=== PATIENT | female | born 1975 | race African-American/Black ===

== ENCOUNTER 2021-03-31 10:35 | Emergency (ER) | payer OTHER ==
[~2021-03-31] VITALS: Ht 170.2 cm; Wt 58.3 kg
[2021-03-31] MEDS ORDERED: ONDANSETRON PF 4 MG/2 ML VIAL. IVP ONE (11:00)
[2021-03-31] MEDS ORDERED: IV NORMAL SALINE 1,000ML 1,000 ML IV ONE (11:00)
--- NOTE | 2021-03-31 11:18 | PHYS DOC ---
Past History Past Surgical History: Hysterectomy, Other Additional Past Surgical Histo: Cyst left shoulder (HARRIET RUBALCAVA APRN) Alcohol Use: Rarely (HARRIET RUBALCAVA APRN) General Adult EDM: Chief Complaint: DIZZY/LIGHT HEADED HPI: HPI: Patient is a 46-year-old female presents with nausea/vomiting/diarrhea since yesterday. Patient states that she was seen by her PCP this morning due to recent illness. "When I got there she said my blood pressure was really high". "Then I started feeling kind of dizzy and had a headache". "I do not know if I started feeling like that because of my anxiety but the doctor really scared me". Patient reports blood pressure at PCP was 181/93. Denies taking anything prior to arrival. Denies chest pain, shortness of breath. No fever. Patient has history of hypertension, asthma, anxiety/depression, bipolar disorder. (HARRIET RUBALCAVA APRN) Review of Systems: Review of Systems: Constitutional: Denies fever or chills Eyes: Denies change in visual acuity HENT: Denies nasal congestion or sore throat Respiratory: Denies cough or shortness of breath Cardiovascular: Denies chest pain or edema GI: Denies abdominal pain. Reports nausea, vomiting, diarrhea : Denies dysuria Musculoskeletal: Denies back pain or joint pain Integument: Denies rash Neurologic: Reports headache. Denies focal weakness or sensory changes Endocrine: Denies polyuria or polydipsia Lymphatic: Denies swollen glands Psychiatric: Reports depression or anxiety (HARRIET RUBALCAVA APRN) Allergies: Allergies: Allergies Coded Allergies Type Severity Reaction Last Updated Verified No Known Drug Allergies 03/31/21 No (HARRIET RUBALCAVA APRN) Physical Exam: PE: Constitutional: Well developed, well nourished, no acute distress, non-toxic appearance. [] HENT: Normocephalic, atraumatic, bilateral external ears normal, oropharynx moist, no oral exudates, nose normal. [] Eyes: PERRLA, EOMI, conjunctiva normal, no discharge. [] Neck: Normal range of motion, no tenderness, supple, no stridor. [] Cardiovascular:Heart rate regular rhythm, no murmur [] Lungs & Thorax: Bilateral breath sounds clear to auscultation [] Abdomen: Bowel sounds normal, soft, no tenderness, no masses, no pulsatile masses. [] Skin: Warm, dry, no erythema, no rash. [] Back: No tenderness, no CVA tenderness. [] Extremities: No tenderness, no cyanosis, no clubbing, ROM intact, no edema. [] Neurologic: Alert and oriented X 3, normal motor function, normal sensory function, no focal deficits noted. [] Psychologic: Affect normal, anxious mood (HARRIET RUBALCAVA APRN) Current Patient Data: Vital Signs: Vital Signs Date Time Temp Pulse Resp B/P (MAP) Pulse Ox O2 Delivery O2 Flow Rate FiO2 03/31/21 10:46 98.5 85 16 176/100 (125) 99 Room Air (HARRIET RUBALCAVA APRN) EKG: EKG: Sinus rhythm. Heart rate 73 bpm. No STEMI. Read by Dr. Su at 1112 [] (HARRIET RUBALCAVA APRN) Radiology/Procedures: Radiology/Procedures: [] CT HEAD WITHOUT CONTRAST 03/31/2021 11:13 AM Indication: Reason: DIZZINESS , HYPERTENSION / Spl. Instructions: / History: Comparison: None Procedure: Multidetector CT imaging of the head was performed without the administration of contrast. Findings: There is no evidence of acute intracranial hemorrhage. There is no evidence of acute territorial infarction. Please note that CT is limited for evaluation of acute ischemia. No mass effect or midline shift is identified . The ventricles and basilar cisterns have an appropriate appearance. No abnormal extra-axial fluid collections are seen. No acute osseous changes are identified. Impression: No evidence of acute intracranial abnormality CT DOSING PQRS STATEMENT: One or more of the following individualized dose reduction techniques were utilized for this examination: 1. Automated exposure control 2. Adjustment of the mA and/or kV according to patient size 3. Use of iterative reconstruction technique Electronically signed by: Lake Prince MD (03/31/2021 11:24 AM) [id number] (HARRIET RUBALCAVA APRN) Heart Score: C/O Chest Pain: No Risk Factors: Risk Factors: DM, Current or recent (<one month) smoker, HTN, HLP, family history of CAD, obesity. Risk Scores: Score 0 - 3: 2.5% MACE over next 6 weeks - Discharge Home Score 4 - 6: 20.3% MACE over next 6 weeks - Admit for Clinical Observation Score 7 - 10: 72.7% MACE over next 6 weeks - Early Invasive Strategies (HARRIET RUBALCAVA APRN) Course & Med Decision Making: Course & Med Decision Making Pertinent Labs and Imaging studies reviewed. (See chart for details) [] Nontoxic appearing, 46-year-old female, was seen by her PCP this morning for nausea/vomiting/diarrhea since yesterday. Patient's been unable to keep down liquids or medication since yesterday. Patient's blood pressure was elevated at PCP at 181/93. Patient states that her PCP sent her to the ER because she was also complaining of a headache and dizziness that started after arriving at PCP. Patient appears very anxious. Patient has a history of anxiety and also hypertension. Patient did attempt to take her blood pressure medicine this morning but states that she vomited soon after. Blood pressure on arrival was 176/100. Patient given Zofran, Ativan, NS bolus to help with symptoms. EKG shows sinus rhythm. No STEMI. CT head is negative for acute abnormality. All labs unremarkable. Patient is most likely dehydrated due to gastroenteritis. Explained to patient that is most likely causing her dizziness along with her headache. Discussed results with patient. Patient states her symptoms have improved. Patient is denying any complaints at this time. Sending patient home with prescription for Zofran. Advised patient she needs to call her PCP to make a follow-up appointment to discuss blood pressure medication adjustments. Blood pressure improved prior to disposition. Patient is hemodynamically stable and able to ambulate on her own. Patient is appreciative and agrees with discharge plan. (HARRIET RUBALCAVA APRN) Course & Med Decision Making I have participated in the care of this patient and I have reviewed and agree with all pertinent clinical information above including history, exam, and recommendations. Zay Su DO (ZAY SU DO) Ton Disclaimer: Ton Disclaimer: This electronic medical record was generated, in whole or in part, using a voice recognition dictation system. (HARRIET RUBALCAVA APRN) Departure Departure: Impression: Primary Impression: Gastroenteritis Additional Impression: Dehydration Disposition: HOME / SELF CARE / HOMELESS Condition: STABLE Referrals: FRANCY GRANT DO (PCP) Patient Instructions: Viral Gastroenteritis, [id number] Additional Instructions: You were seen in the emergency room for elevated blood pressure. You have also been experiencing nausea/vomiting/diarrhea since yesterday. All of your labs were unremarkable. CT of your head was unremarkable. You most likely have some dehydration from gastroenteritis. You were given nausea medication, fluids and anxiety medication. All of your symptoms improved along with your blood pressure. You need to call your PCP back today to make a follow-up appointment so you can discuss making adjustments to your blood pressure medicine. I am sending you home with some nausea medication. Make sure that you are drinking plenty of fluids. Please return to the emergency room if you have chest pain, shortness of breath, uncontrolled vomiting or any worsening concerns. EMERGENCY DEPARTMENT GENERAL DISCHARGE INSTRUCTIONS Thank you for coming to [facility] (ED) today and trusting us with you care. We trust that you had a positivie experience in our Emergency Department. If you wish to speak to the department management, you may call the director at [phone]. YOUR FOLLOW UP INSTRUCTIONS ARE FOLLOWS: 1. Do you have a private Doctor? If you do not have a private doctor, please ask for a resource list of physicians or clinics that may be able to assist you with follow up care. 2. The Emergency Physician has interpreted your x-rays. The X-Ray specialist will also review them. If there is a change in the findings, you will be notified in 48 hours when at all possible. 3. A lab test or culture has been done, your results will be reviewed and you will be notified if you need a change in treatment. ADDITIONAL INSTRUCTIONS AND INFORMATION: 1. Your care today has been supervised by a physician who is specially trained in emergency care. Many problems require more than one evaluation for a complete diagnosis and treatment. We recommend that you schedule your follow up appointment as recommended to ensure complete treatment of you illness or injury. If you are unable to obtain follow up care and continue to have a problem, or if your condition worsens, we recommend that you return to the ED. 2. We are not able to safely determine your condition over the phone nor are we able to give sound medical advice over the phone. For these safety reasons, if you call for medical advice we will ask you to come to the ED for further evaluation. 3. If you have any questions regarding these discharge instructions please call the ED at [phone]. SAFETY INFORMATION: In the interest of safety, wellness, and injury prevention; we encourage you to wear your sealbelt, if you smoke; quite smoking, and we encourage family to use a protective helmet for bicycling and other sporting events that present an increased risk for head injury. IF YOUR SYMPTOMS WORSEN OR NEW SYMPTOMS DEVELOP, OR YOU HAVE CONCERNS ABOUT YOUR CONDITION; OR IF YOUR CONDITION WORSENS WHILE YOU ARE WAITING FOR YOUR FOLLOW UP APPOINTMENT; EITHER CONTACT YOUR PRIMARY CARE DOCTOR, THE PHYSICIAN WHOSE NAME AND NUMBER YOU WERE GIVEN, OR RETURN TO THE ED IMMEDIATELY. Scripts Ondansetron Hcl (ZOFRAN) 4 Mg Tablet 1 TAB PO Q6HRS for nausea for 7 Days, #28 TAB Prov: HARRIET RUBALCAVA APRN 03/31/21 HARRIET RUBALCAVA APRN Mar 31, 2021 11:18 ZAY SU DO Apr 03, 2021 00:27
--- NOTE | 2021-03-31 11:26 | RAD ---
CT HEAD WITHOUT CONTRAST 03/31/2021 11:13 AM Indication: Reason: DIZZINESS , HYPERTENSION / Spl. Instructions: / History: Comparison: None Procedure: Multidetector CT imaging of the head was performed without the administration of contrast. Findings: There is no evidence of acute intracranial hemorrhage. There is no evidence of acute territ orial infarction. Please note that CT is limited for evaluation of acute ischemia. No mass effect or midline shift is identified . The ventricles and basilar cisterns have an appropriate appearance. No abnormal extra-axial fluid collections are seen. No acute osseous changes are identified. Impression: No evidence of acute intracranial abnormality CT DOSING PQRS STATEMENT: One or more of the following individualized dose reduction techniques were utilized for this examinat ion: 1. Automated exposure control 2. Adjustment of the mA and/or kV according to patient size 3. Use of iterative reconstruction technique Electronically signed by: Lake Prince MD (03/31/2021 11:24 AM) [id number]
[2021-03-31 12:03] LABS: BASO % 1 % (0-3); EOS % 1 % (0-3); HEMATOCRIT 40.7 % (36.0-47.0); HEMOGLOBIN 13.6 g/dL (12.0-15.5); LYMPH # 2.9 x10^3/uL (1.0-4.8); LYMPH % 41 % (24-48); MEAN CORPUSCULAR HEMOGLOBIN 29 pg (25-35); MEAN CORPUSCULAR HGB CONC 33 g/dL (31-37); MEAN CORPUSCULAR VOLUME 88 fL (79-100); MONO # 0.4 x10^3/uL (0.0-1.1); MONO % 6 % (0-9); NEUT # 3.6 x10^3uL (1.8-7.7); NEUT % 52 % (31-73); PLATELET COUNT 235 x10^3/uL (140-400); RED BLOOD COUNT 4.64 x10^6/uL (3.50-5.40); RED CELL DISTRIBUTION WIDTH 16.9 % (11.5-14.5)
[2021-03-31 12:12] LABS: CALCIUM 10.2 mg/dL (8.5-10.1); CREATININE 0.9 mg/dL (0.6-1.0); GFR 81.6; POTASSIUM 3.9 mmol/L (3.5-5.1)
[2021-03-31] MEDS ORDERED: ONDA4TAB7 PO (12:53)
[2021-03-31 12:56] VITALS: BP 166/89
--- NOTE | 2021-03-31 13:55 | EKG ---
[address] [address] Test Date: 2021-03-31 Test Time: 11:07:08 Pat Name: DIGNA HASSAN Department: Room: Gender: F In File Operator: VICKI : 1975 Requested By: HARRIET RUBALCAVA Order Number: [id number] Reading MD: Momo Martell MD Measurements Intervals [place] Rate: 73 P: 49 [place]: 176 QRS: 49 QRSD: 82 T: 50 QT: 390 QTc: 433 Interpretive Statements SINUS RHYTHM Electronically Signed On 03-31-2021 15:01:51 CDT by Momo Martell MD
== END 2021-03-31 13:01 | disposition home or self-care (01) ==
LOC: ER 10:35
DX: K52.9 Noninfective gastroenteritis and colitis, unspecified (principal); E86.0 Dehydration; Z90.710 Acquired absence of both cervix and uterus
CPT/HCPCS: 36415; 70450; 80048; 83880; 84484; 85025; 93005; 96361; 96374; 96375; 99285; J2060; J2405; J7030